=== PATIENT | male | born 1980 | race Caucasian/White ===

== ENCOUNTER 2018-07-27 07:59 | Emergency (ER) | payer BC, SELFPAY ==
[2018-07-27 08:00] VITALS: BP 144/96; PULSE 84; RESP 14; TEMP 36.5; BMI 27.6
--- NOTE | 2018-07-27 08:18 | ED.DCSUM_ITS ---
- ER Visit Summary Date of Service: 07/27/18 Chief Complaint: Right hand lacerations x2 History of Present Illness: The patient is a 38 M hand dominant. Has had prior surgery on his right hand a boxers fracture. Patient was moving slabs a cement this morning and lacerated the knuckle and dorsum of his right hand. Denies any numbness. He has full range of motion. Denies any other injuries. Also wanted me to look at his left knee while he is here. He said it has been sore recently. Denies any trauma. Patient's tetanus is also not up-to-date. Physical Examination: Well-appearing young male. Vital signs are stable and afebrile. H EENT exam unremarkable. Lungs clear to auscultation. Heart regular rhythm no murmur. Abdomen soft and nontender. He is moving all 4 extremities. The neurovascular intact. His right hand there is a laceration over the knuckle of the long finger. And also the dorsum of the right hand. Both are about 2 and asked centimeters in length. They both involve the skin and subcu tissue. There is dried blood. But no significant active bleeding. No pulsatile bleeding. No foreign body. He has full range of motion with flexion-extension of the right hand. He has full range of motion all digits of the right hand. Normal cap refill. Normal touch sensation. There are no bony deformities. The wrist is nontender. The hand is dirty with blood and dirt and will need to be washed off thoroughly. She also asked me to examine his left knee. He has mild swelling below the left knee just above his tibial tuberosity. He said he has been kneeling on his knees to do work. He is developed swelling and discomfort in the left knee. The exam is consistent with a left knee bursitis. No signs of infection. He has full range of motion of the knee. All ligaments are intact. There is no knee effusion. There is no bony deformities. Test Results: None Emergency Department Course and Treatment: Procedure note: Local anesthetic with lidocaine. Cleaned thoroughly with Shur-Clens wash with saline. Explored. Closed using 4-0 Ethilon sutures. Dorsum of the hand laceration took 3 simple interrupted 4-0 Ethilon sutures. The long finger MCP laceration took 2 simple interrupted 4-0 Ethilon sutures. Patient tolerated procedure well. Full range of motion post procedure. Treatment Plan: [] Suture removal in 10-14 days. Keep wound clean. Antibiotic ointment daily. Watch for signs of infection. For the left knee bursitis ice, rest and anti-inflammatories. Disposition: Discharge Impression: Right hand lacerations x2. First laceration 2.5 centimeters repaired by ER Second laceration 2.5 cm repaired by ER Left knee bursitis This note was generated with [employer] dictation software. It may contain incorrect words, spelling, and punctuation that were not noted in review of the chart prior to signing ED Disposition - Plan for ED Patient: Chief Complaint: Laceration
--- NOTE | 2018-07-27 08:39 | ED.DEP ---
ED Disposition - Plan for ED Patient: Disposition: Home or Assisted Living Chief Complaint: Laceration Instructions: ED Laceration Hand, What Is Bursitis?, ED Bursitis Referrals: [facility],Out of [Primary Care Provider] - 10-14 Days suture removal Additional Instructions: Keep hand wounds clean and dry. Apply antibiotic ointment daily. Suture removal in 10-14 days. Watch for any signs of infection. Left knee bursitis. Needs iced. Rest. Motrin for pain and inflammation. If swells significantly more may need to be
[2018-07-27] MEDS: Diphth,Pertuss(Acell),Tet Vac 0.5 ML Vial IM (08:41)
== END 2018-07-27 09:00 | disposition home or self-care (01) ==
PROVIDERS: Emergency Provider Emergency Medicine
DX: S61.411A Laceration without foreign body of right hand, initial encounter (principal); M70.52 Other bursitis of knee, left knee; W26.8XXA Contact with other sharp object(s), not elsewhere classified, initial encounter; Y93.9 Activity, unspecified; Y92.89 Other specified places as the place of occurrence of the external cause; Y99.9 Unspecified external cause status
CPT/HCPCS: 12002; 90715; 99283